=== PATIENT | female | born 1980 | race Caucasian/White ===

== ENCOUNTER 2016-12-18 06:25 | Inpatient (IN) | payer OTHER ==
[~2016-12-18] VITALS: Ht 162.6 cm; Wt 88.0 kg
[2016-12-18] MEDS ORDERED: OXYTOCIN 30U/ 0.9% NaCL 500ML 500 ML IV ONE (06:31)
[2016-12-18 06:42] VITALS: BP 137/80
[2016-12-18] MEDS: LACTATED RINGERS 1,000 ML IV SCH ×3 (06:49→18:35)
[2016-12-18] MEDS ORDERED: OXYTOCIN 30U/ 0.9% NaCL 500ML 500 ML ONE (06:52)
[2016-12-18] MEDS ORDERED: NEWBORN KIT ONE (06:52)
[2016-12-18] MEDS ORDERED: SODIUM CITRATE/CITRIC ACID 30 ML UDC PO PRN (07:00)
[2016-12-18] MEDS ORDERED: METOCLOPRAMIDE 5 MG/ML, 2ML IVPush PRN (07:00)
[2016-12-18] MEDS ORDERED: MISOPROSTOL 25 MCG TABLET VG PRN ×2 (07:00→08:00)
[2016-12-18] MEDS ORDERED: FENTANYL PF 100 MCG/2ML IV PRN (07:00)
[2016-12-18] MEDS ORDERED: FENTANYL PF 100 MCG/2ML IVPush PRN (07:00)
[2016-12-18] MEDS ORDERED: MISOPROSTOL 25 MCG TABLET ONE (07:44)
[2016-12-18] MEDS ORDERED: SODIUM CHLORIDE FLUSH 10ML SYR IVF PRN (08:00)
[2016-12-18] MEDS: OXYTOCIN 30U/ 0.9% NaCL 500ML 500 ML IV PRN (14:06)
[2016-12-18] MEDS: D5%-LACTATED RINGERS 1,000 ML IV SCH ×2 (14:31→22:31)
[2016-12-18] MEDS ORDERED: LIDOCAINE 1%, 20ML ONE (14:49)
[2016-12-18] MEDS ORDERED: MISOPROSTOL 200 MCG TABLET ONE (14:49)
[2016-12-18] MEDS ORDERED: FENTANYL/BUPIV./NS/PF 250 ML EPIDCONT ONE (15:32)
[2016-12-18] MEDS ORDERED: BUPIVACAINE/PF 0.25% ONE (15:32)
[2016-12-18] MEDS ORDERED: LIDOCAINE/PF 1.5%-EPI 1:200K, 30ML ONE (15:32)
[2016-12-18] MEDS ORDERED: LACTATED RINGERS 1,000 ML INTUTE PRN (19:30)
[2016-12-18] MEDS ORDERED: LACTATED RINGERS 1,000 ML INTUTE SCH (19:30)
[2016-12-19] MEDS: D5%-LACTATED RINGERS 1,000 ML IV SCH ×4 (01:35→22:31)
[2016-12-19] MEDS: FENTANYL/BUPIV./NS/PF 250 ML EPIDCONT SCH (03:48)
[2016-12-19] MEDS ORDERED: LACTATED RINGERS 1,000 ML IVBOLUS PRN (04:00)
[2016-12-19] MEDS: LACTATED RINGERS 1,000 ML IV SCH ×6 (06:31→22:31)
[2016-12-19] MEDS ORDERED: OXYTOCIN 30U/ 0.9% NaCL 500ML 500 ML ONE (08:48)
[2016-12-19] MEDS: OXYTOCIN 30U/ 0.9% NaCL 500ML 500 ML IV PRN (09:02)
[2016-12-19] MEDS: OXYTOCIN 30U/ 0.9% NaCL 500ML 500 ML IV SCH ×2 (09:07→13:18)
[2016-12-19] MEDS ORDERED: ONDANSETRON 2MG/ML, 2ML IV PRN (09:30)
[2016-12-19] MEDS ORDERED: METHYLERGONOVINE 0.2 MG/ML IM PRN (09:30)
[2016-12-19] MEDS ORDERED: OXYcodone/APAP 5/325MG TABLET PO PRN (09:30)
[2016-12-19] MEDS ORDERED: ACETAMINOPHEN 325 MG TABLET PO PRN (09:30)
[2016-12-19] MEDS ORDERED: OXYcodone/APAP 5/325MG TABLET ONE (10:27)
[2016-12-19] MEDS ORDERED: IBUPROFEN 800 MG TABLET ONE (10:28)
[2016-12-19] MEDS: OXYcodone/APAP 5/325MG TABLET PO PRN ×2 (10:29→15:50)
[2016-12-19] MEDS: IBUPROFEN 800 MG TABLET PO PRN (10:29)
[2016-12-19 13:07] VITALS: BP 117/72
[2016-12-19 15:28] VITALS: BP 105/6
[2016-12-19] MEDS: DOCUSATE 100 MG CAPSULE PO PRN (15:50)
[2016-12-19 18:10] LABS: DIFF TOTAL CELLS COUNTED 100 CELL DIFF
[2016-12-19 18:13] LABS: VERIFY COUNTS? YES
[2016-12-19 19:50] VITALS: BP 107/66
[2016-12-20] VITALS: BP 105/67
[2016-12-20] MEDS: DOCUSATE 100 MG CAPSULE PO PRN ×2 (02:29→09:27)
[2016-12-20] MEDS: IBUPROFEN 800 MG TABLET PO PRN ×2 (02:29→11:36)
[2016-12-20] MEDS: LACTATED RINGERS 1,000 ML IV SCH ×3 (03:48→11:48)
[2016-12-20] MEDS: FENTANYL/BUPIV./NS/PF 250 ML EPIDCONT SCH (03:48)
[2016-12-20 04:10] VITALS: BP 100/63
[2016-12-20] MEDS: OXYTOCIN 30U/ 0.9% NaCL 500ML 500 ML IV SCH (05:07)
[2016-12-20] MEDS ORDERED: PRENATAL VIT/IRON/FA 1 EACH TABLET PO SCH (09:00)
[2016-12-20 09:30] VITALS: BP 108/69
[2016-12-20] MEDS ORDERED: OXYC-302 PO (16:53)
[2016-12-20] MEDS ORDERED: DOCU-30 PO (16:54)
[2016-12-20] MEDS ORDERED: IBUP-1222 PO (16:54)
== END 2016-12-20 18:15 | disposition home or self-care (01) | DRG 775 ==
LOC: LDIP 06:25 → 2NW 12-19 11:43
PROVIDERS: ADMIT Obstetrics & Gynecology; ATTEND Obstetrics & Gynecology
PROC: 10E0XZZ Delivery of Products of Conception, External Approach (ICD-10-PCS; principal; 2016-12-19)
PROC: 0UQMXZZ Repair Vulva, External Approach (ICD-10-PCS; 2016-12-19)
PROC: 3E0R3CZ (ICD-10-PCS; 2016-12-19)
PROC: 00HU33Z Insertion of Infusion Device into Spinal Canal, Percutaneous Approach (ICD-10-PCS; 2016-12-19)
PROC: 3E0P7GC Introduction of Other Therapeutic Substance into Female Reproductive, Via Natural or Artificial Opening (ICD-10-PCS; 2016-12-19)
DX: O36.5930 Maternal care for other known or suspected poor fetal growth, third trimester, not applicable or unspecified (principal); O24.425 Gestational diabetes mellitus in childbirth, controlled by oral hypoglycemic drugs; O69.1XX0 Labor and delivery complicated by cord around neck, with compression, not applicable or unspecified; O70.0 First degree perineal laceration during delivery; Z37.0 Single live birth; Z3A.39 39 weeks gestation of pregnancy
CPT/HCPCS: 36415; 82962; 85025; 86850; 86900; J2590; J3010; J7120; J7121